=== PATIENT | female | born 1960 | race Caucasian/White ===

== ENCOUNTER 2019-06-22 11:34 | Day surgery (SDC) | payer OTHER ==
[2019-06-21 14:55] VITALS: BMI 30.2
[2019-06-22 12:31] VITALS: TEMP 99.1
[2019-06-22 13:53] VITALS: BP 132/81; PULSE 70
--- NOTE | 2019-06-23 16:14 | PATH ---
Surgical Pathology Report Patient Name: KARRIE MODI [facility]. Rec. #: [id number] /Age/Gender: 1960 (Age: 59) / F Account: [id number] Location: [facility]-ENDOSCOPY Taken: 06/22/2019 Received: 06/22/2019 Reported: 06/23/2019 Physicians: Clarence Ulrich D.O. Specimen(s) Received A: 2ND PORTION AND BULB OF DUODENUM BIOPSY B: EROSIONS AND DISTAL BODY BIOPSY C: ANTRUM AND BODY BIOPSY D: GE JUNCTION BIOPSY Clinical History GERD, anemia Postoperative diagnosis: Gastritis Final Diagnosis A. SECOND PORTION OF DUODENUM AND BULB, BIOPSY: DUODENUM MUCOSA WITH NO SIGNIFICANT PATHOLOGIC CHANGE. NO HISTOLOGIC EVIDENCE OF CELIAC DISEASE. B. EROSIONS AND DISTAL BODY BIOPSY: GASTRIC MUCOSA WITH CHRONIC GASTRITIS. REACTIVE GASTROPATHY PRESENT. NEGATIVE FOR INTESTINAL METAPLASIA. SEPARATE ONE SMALL FRAGMENT OF DUODENUM MUCOSA WITH NO SIGNIFICANT PATHOLOGIC CHANGE. C. ANTRUM AND BODY BIOPSY: GASTRIC MUCOSA WITH FOCAL REACTIVE GASTROPATHY. IMMUNOSTAIN FOR H. PYLORI IS NEGATIVE. NEGATIVE FOR INTESTINAL METAPLASIA. D. GE JUNCTION BIOPSY: GASTROESOPHAGEAL JUNCTIONAL MUCOSA WITH REFLUX ESOPHAGITIS. NEGATIVE FOR INTESTINAL METAPLASIA. Electronically Signed Galilea Sanchez M.D. Gross Description A. Received in formalin, labeled "second portion of duodenum and bulb" are 2 [place], irregular portions of soft tissue measuring 0.2 and 0.4 cm. in greatest dimension. The specimens are submitted in toto in one cassette. B. Received in formalin, labeled "erosion and distal body biopsy" are 4 [place], irregular portions of soft tissue ranging from 0.2-0.4 cm. in greatest dimension. The specimens are submitted in toto in one cassette. C. Received in formalin, labeled "antrum and body biopsy" are 2 [place], irregular portions of soft tissue averaging 0.4 cm. in greatest dimension. The specimens are submitted in toto in one cassette. D. Received in formalin, labeled "GE junction biopsy" are 4 [place], irregular portions of soft tissue ranging from 0.1-0.2 cm. in greatest dimension. The specimens are submitted in toto in one cassette. /06/22/2019 saudi06/22/2019
== END 2019-06-22 13:30 | disposition home or self-care (01) ==
LOC: JASU-ENDO 11:34
PROVIDERS: ATTEND Internal Medicine Gastroenterology
PROC: 0DB68ZX Excision of Stomach, Via Natural or Artificial Opening Endoscopic, Diagnostic (ICD-10-PCS; 2019-06-22)
PROC: 0DB48ZX Excision of Esophagogastric Junction, Via Natural or Artificial Opening Endoscopic, Diagnostic (ICD-10-PCS; principal; 2019-06-22 11:00)
DX: K21.0 Gastro-esophageal reflux disease with esophagitis (principal); K29.50 Unspecified chronic gastritis without bleeding; I10 Essential (primary) hypertension; J44.9 Chronic obstructive pulmonary disease, unspecified
CPT/HCPCS: 88305-TC; 88342-TC

== ENCOUNTER 2019-06-29 10:04 | Day surgery (SDC) | payer OTHER ==
[2019-06-28 14:42] VITALS: BMI 23.5
[2019-06-29 12:40] VITALS: TEMP 97.7
[2019-06-29 14:23] VITALS: BP 119/68; PULSE 52
--- NOTE | 2019-06-30 15:01 | PATH ---
Surgical Pathology Report Patient Name: KARRIE MODI [facility]. Rec. #: [id number] /Age/Gender: 1960 (Age: 59) / F Account: [id number] Location: [facility]-ENDOSCOPY Taken: 06/29/2019 Received: 06/29/2019 Reported: 06/30/2019 Physicians: Clarence Ulrich D.O. Specimen(s) Received A: POLYP PROXIMAL TRANSVERSE COLON B: POLYP RIGHT COLON C: CECUM POLYP D: RIGHT COLON POLYP #2 E: SIGMOID POLYP Clinical History Rectal bleeding Postoperative diagnosis: Colon polyps, diverticulosis Final Diagnosis A. PROXIMAL TRANSVERSE COLON, POLYP, POLYPECTOMY: TUBULAR ADENOMA. B. COLON, RIGHT, POLYP, POLYPECTOMY AND BIOPSY: TUBULAR ADENOMA. C. CECUM, POLYP, POLYPECTOMY: TUBULAR ADENOMA, CAUTERIZED. D. COLON, RIGHT ,POLYP #2, POLYPECTOMY: TUBULAR ADENOMA, CAUTERIZED. E. SIGMOID COLON, POLYP, BIOPSY: HYPERPLASTIC POLYP. Electronically Signed Rosmery Chand M.D. Gross Description A. Received in formalin, labeled "polyp proximal transverse colon" is a [place], polypoid portion of soft tissue measuring 0.6 cm. in greatest dimension. The specimen is submitted in toto in one cassette. B. Received in formalin, labeled "polyp right colon" are 3 [place], irregular portions of soft tissue ranging from 0.1-0.3 cm. in greatest dimension. The specimens are submitted in toto in one cassette. C. Received in formalin, labeled "polyp cecum " are 3 [place], irregular portions of soft tissue ranging from 0.1-0.4 cm. in greatest dimension. The specimens are submitted in toto in one cassette. D. Received in formalin, labeled "right colon polyp #2" is a [place], irregular portion of soft tissue measuring 0.2 cm. in greatest dimension. The specimen is submitted in toto in one cassette. E. Received in formalin, labeled "biopsy sigmoid polyp" is a [place], irregular portion of soft tissue measuring 0.4 cm. in greatest dimension. The specimen is submitted in toto in one cassette. DL/06/29/2019 saudi/06/29/2019
== END 2019-06-29 14:00 | disposition home or self-care (01) ==
LOC: JASU-ENDO 10:04
PROVIDERS: ATTEND Internal Medicine Gastroenterology
PROC: 0DBF8ZX Excision of Right Large Intestine, Via Natural or Artificial Opening Endoscopic, Diagnostic (ICD-10-PCS; 2019-06-29)
PROC: 0DBN8ZX Excision of Sigmoid Colon, Via Natural or Artificial Opening Endoscopic, Diagnostic (ICD-10-PCS; 2019-06-29)
PROC: 0DBL8ZX Excision of Transverse Colon, Via Natural or Artificial Opening Endoscopic, Diagnostic (ICD-10-PCS; 2019-06-29)
PROC: 3E0H8GC Introduction of Other Therapeutic Substance into Lower GI, Via Natural or Artificial Opening Endoscopic (ICD-10-PCS; 2019-06-29)
PROC: 0DBH8ZX Excision of Cecum, Via Natural or Artificial Opening Endoscopic, Diagnostic (ICD-10-PCS; principal; 2019-06-29 10:30)
DX: Z12.11 Encounter for screening for malignant neoplasm of colon (principal); K57.30 Diverticulosis of large intestine without perforation or abscess without bleeding; K63.89 Other specified diseases of intestine; D12.0 Benign neoplasm of cecum; D12.5 Benign neoplasm of sigmoid colon; D12.3 Benign neoplasm of transverse colon; K64.8 Other hemorrhoids
CPT/HCPCS: 88305-TC

== ENCOUNTER 2021-06-11 04:14 | Day surgery (SDC) | payer OTHER ==
[2021-06-08 14:03] VITALS: BMI 23.5
[2021-06-11] MEDS ORDERED: DEXAMETHASONE SOD PHOSPHATE 4 MG/1 ML VIAL ONE (07:20)
[2021-06-11] MEDS ORDERED: BUPIVACAINE HCL/PF 0.25% (2.5MG/ML) 10 ML VIAL ONE (07:20)
[2021-06-11] MEDS ORDERED: MIDAZOLAM HCL 2 MG/2 ML SINGLE DOSE VIAL ONE (08:01)
[2021-06-11] MEDS ORDERED: PROPOFOL 20 ML ONE (08:02)
[2021-06-11] MEDS ORDERED: SUCCINYLCHOLINE CHLORIDE 200 MG/10 ML SYRINGE ONE (08:02)
[2021-06-11] MEDS ORDERED: DEXAMETHASONE SOD PHOSPHATE 10 MG/1 ML VIAL ONE (08:27)
[2021-06-11] MEDS ORDERED: BUPIVACAINE HCL/PF 0.5% (5MG/ML) 10 ML VIAL ONE (08:28)
[2021-06-11] MEDS ORDERED: LIDOCAINE HCL 1%, 10 MG/ML (20ML VIAL) SQ ONE (08:36)
[2021-06-11] MEDS ORDERED: LIDOCAINE HCL 1%, 10 MG/ML (20ML VIAL) ONE (08:37)
[2021-06-11] MEDS ORDERED: BUPIVACAINE HCL/PF 0.5% (5MG/ML) 10 ML VIAL IJ ONE (08:37)
[2021-06-11] MEDS ORDERED: IOHEXOL 180 MG/1 ML ML IJ ONE (08:38)
[2021-06-11] MEDS ORDERED: DEXAMETHASONE SOD PHOSPHATE 10 MG/1 ML VIAL IVPUSH ONE (08:38)
[2021-06-11 14:31] VITALS: BP 154/75; PULSE 70; TEMP 97.2
== END 2021-06-11 11:23 | disposition home or self-care (01) ==
LOC: JASU-SURG 04:14
PROVIDERS: ATTEND Physical Medicine & Rehabilitation
PROC: 3E0T33Z Introduction of Anti-inflammatory into Peripheral Nerves and Plexi, Percutaneous Approach (ICD-10-PCS; 2021-06-11)
PROC: 3E0T3BZ Introduction of Anesthetic Agent into Peripheral Nerves and Plexi, Percutaneous Approach (ICD-10-PCS; principal; 2021-06-11 08:00)
DX: M47.816 Spondylosis without myelopathy or radiculopathy, lumbar region (principal)
CPT/HCPCS: 76000-TC-FY; J1100

== ENCOUNTER 2022-11-23 14:49 | Inpatient (IN) | payer OTHER ==
[2022-11-23] MEDS ORDERED: CEFAZOLIN 1 GM in DEXTROSE 5%-WATER - 50 ML IVPB ONE (16:34)
[2022-11-23] MEDS: ALBUTEROL SO4 2.5/IPRATROPIUM 0.5 INH SOL 3 ML VIAL.NEB. NEB SCH ×2 (16:46→19:53)
[2022-11-23] MEDS ORDERED: ceFAZolin SODIUM 1 GM VIAL ONE (17:02)
[2022-11-23 17:33] LABS: BASO % 0.9 % (0-2.0); EOS % 4.9 % (0-4.5); HEMATOCRIT 37.8 % (32.4-45.2); HEMOGLOBIN 12.7 GM/dL (10.7-15.3); LYMPH % 34.1 % (8-40); MCH 33.6 pg (25.7-33.7); MCHC 33.5 g/dl (32.0-36.0); MEAN CELL VOLUME 100.2 fl (80-96); MEAN PLT VOLUME 7.9 fl (7.5-11.1); MONO % 8.3 % (3.8-10.2); NEUT % 51.8 % (42.8-82.8); PLATELET COUNT 285 10^3/uL (134-434); RBC 3.77 M/mm3 (3.60-5.2); RDW 13.8 % (11.6-15.6); WHITE BLOOD COUNT 6.2 K/mm3 (4.0-10.0)
[2022-11-23 17:53] LABS: CALCIUM 8.5 mg/dL (8.5-10.1)
[2022-11-23 17:54] LABS: ALBUMIN 3.5 g/dl (3.4-5.0); BLOOD UREA NITROGEN 4.2 mg/dL (7-18); MAGNESIUM 2.2 mg/dL (1.8-2.4)
[2022-11-23 17:57] LABS: CREATININE 0.5 mg/dL (0.55-1.3)
[2022-11-23 17:58] LABS: BILIRUBIN,TOTAL 0.3 mg/dL (0.2-1); TOT PROT 6.7 g/dl (6.4-8.2)
[2022-11-23] MEDS ORDERED: ALBUTEROL SO4 2.5/IPRATROPIUM 0.5 INH SOL 3 ML VIAL.NEB. NEB PRN (23:42)
[2022-11-23] MEDS: NICOTINE 14 MG/24 HOURS TOPICAL PATCH TD SCH (23:50)
[2022-11-24 02:41] VITALS: BMI 29.5
[2022-11-24] MEDS ORDERED: CEFAZOLIN 1 GM in DEXTROSE 5%-WATER - 50 ML IVPB ONE (08:42)
[2022-11-24] MEDS: NICOTINE 14 MG/24 HOURS TOPICAL PATCH TD SCH (09:54)
[2022-11-24 10:07] LABS: BASO % 0.5 % (0-2.0); EOS % 4.9 % (0-4.5); HEMATOCRIT 37.2 % (32.4-45.2); HEMOGLOBIN 12.6 GM/dL (10.7-15.3); LYMPH % 32.9 % (8-40); MCH 34.3 pg (25.7-33.7); MEAN CELL VOLUME 100.9 fl (80-96); MONO % 6.8 % (3.8-10.2); NEUT % 54.9 % (42.8-82.8); PLATELET COUNT 320 10^3/uL (134-434); RBC 3.68 M/mm3 (3.60-5.2); RDW 13.9 % (11.6-15.6); WHITE BLOOD COUNT 5.5 K/mm3 (4.0-10.0)
[2022-11-24 10:43] LABS: ALBUMIN 3.4 g/dl (3.4-5.0); BLOOD UREA NITROGEN 5.1 mg/dL (7-18)
[2022-11-24 10:44] LABS: BILIRUBIN,TOTAL 0.5 mg/dL (0.2-1); TOT PROT 6.7 g/dl (6.4-8.2)
[2022-11-24 10:45] LABS: CREATININE 0.7 mg/dL (0.55-1.3)
[2022-11-24 10:46] LABS: CALCIUM 8.8 mg/dL (8.5-10.1)
[2022-11-24] MEDS: ALPRAZolam 1 MG TABLET PO SCH ×3 (13:52→22:38)
[2022-11-24] MEDS: FUROSEMIDE 40 MG TABLET (FP) PO SCH (13:53)
[2022-11-24] MEDS: BUDESONIDE/FORMETEROL FUMARATE 160/4.5 mcg INHALER IH SCH (22:38)
[2022-11-24] MEDS: SERTRALINE HCL 50 MG TABLET (FP) PO SCH (22:38)
[2022-11-25 07:44] VITALS: RESP 20
[2022-11-25 08:45] LABS: URINE APPEARANCE CLOUDY; URINE BILIRUBIN NEGATIVE (NEGATIVE); URINE COLOR YELLOW; URINE GLUCOSE (UA) NEGATIVE (NEGATIVE); URINE KETONE NEGATIVE (NEGATIVE); URINE LEUK ESTERASE NEGATIVE (NEGATIVE); URINE NITRITE NEGATIVE (NEGATIVE); URINE PROTEIN NEGATIVE (NEGATIVE)
[2022-11-25] MEDS: SERTRALINE HCL 50 MG TABLET (FP) PO SCH ×2 (09:27→22:26)
[2022-11-25] MEDS: ALPRAZolam 1 MG TABLET PO SCH ×4 (09:27→22:29)
[2022-11-25] MEDS: FUROSEMIDE 40 MG TABLET (FP) PO SCH (09:27)
[2022-11-25] MEDS: CEPHALEXIN MONOHYDRATE 500 MG CAPSULE (UD) PO SCH ×2 (09:28→22:28)
[2022-11-25] MEDS: ASPIRIN 81 MG CHEWABLE TABLETS PO SCH (09:28)
[2022-11-25] MEDS: BUDESONIDE/FORMETEROL FUMARATE 160/4.5 mcg INHALER IH SCH ×2 (09:28→22:28)
[2022-11-25] MEDS: NICOTINE 14 MG/24 HOURS TOPICAL PATCH TD SCH (09:28)
[2022-11-25] MEDS: GABAPENTIN 100 MG CAPSULE PO SCH ×2 (14:53→22:26)
[2022-11-26] MEDS: GABAPENTIN 100 MG CAPSULE PO SCH ×2 (06:35→14:55)
[2022-11-26] MEDS: FUROSEMIDE 40 MG TABLET (FP) PO SCH (09:23)
[2022-11-26] MEDS: SERTRALINE HCL 50 MG TABLET (FP) PO SCH (09:23)
[2022-11-26] MEDS: NICOTINE 14 MG/24 HOURS TOPICAL PATCH TD SCH (09:23)
[2022-11-26] MEDS: ALPRAZolam 1 MG TABLET PO SCH ×2 (09:23→14:55)
[2022-11-26] MEDS: ASPIRIN 81 MG CHEWABLE TABLETS PO SCH (09:23)
[2022-11-26] MEDS: CEPHALEXIN MONOHYDRATE 500 MG CAPSULE (UD) PO SCH (09:23)
[2022-11-26] MEDS: BUDESONIDE/FORMETEROL FUMARATE 160/4.5 mcg INHALER IH SCH (09:25)
[2022-11-26 14:32] VITALS: BP 134/72; PULSE 73; TEMP 98.5
== END 2022-11-26 16:45 | disposition home health service (06) | DRG 603 ==
LOC: JER 14:49 → JERBED 20:05 → J8W 23:09
PROVIDERS: ADMIT Internal Medicine; ATTEND Family Medicine
DX: L03.115 Cellulitis of right lower limb (principal); F11.20 Opioid dependence, uncomplicated; L03.116 Cellulitis of left lower limb; J44.9 Chronic obstructive pulmonary disease, unspecified; J45.909 Unspecified asthma, uncomplicated; I50.9 Heart failure, unspecified; I11.0 Hypertensive heart disease with heart failure; F17.200 Nicotine dependence, unspecified, uncomplicated; R26.81 Unsteadiness on feet; G62.9 Polyneuropathy, unspecified; M20.12 Hallux valgus (acquired), left foot; M20.11 Hallux valgus (acquired), right foot; B35.1 Tinea unguium; K21.9 Gastro-esophageal reflux disease without esophagitis
CPT/HCPCS: 0241U-QW; 36415; 71045-TC-FY; 73502-TC-LT-FY; 73630-TC-LT; 73630-TC-RT-FY; 80053; 81003; 82550; 83735; 83880; 84484; 85025; 93005; 93010; 93970-TC; 97116-GP; 99285-25

== ENCOUNTER 2023-05-08 13:15 | Day surgery (SDC) | payer OTHER ==
[2023-05-08] MEDS ORDERED: FERRIC CARBOXYMALTOSE 750 MG in SODIUM CHLORIDE 250 ML IVPB ONE (14:00)
[2023-05-08 14:47] VITALS: RESP 18; TEMP 98
[2023-05-08 15:34] VITALS: BP 131/86; PULSE 80
== END 2023-05-08 15:35 | disposition home or self-care (01) ==
LOC: FINFUSION 13:15 → FM/S 13:22 → FINFUSION 15:35
PROVIDERS: ATTEND Family Medicine
PROC: 3E033GC Introduction of Other Therapeutic Substance into Peripheral Vein, Percutaneous Approach (ICD-10-PCS; principal; 2023-05-08)
DX: D50.9 Iron deficiency anemia, unspecified (principal)
CPT/HCPCS: 96365; J1439

== ENCOUNTER 2023-05-19 11:22 | Day surgery (SDC) | payer OTHER ==
[~2023-05-19 11:22] MED LIST: FERRIC CARBOXYMALTOSE 750 MG in SODIUM CHLORIDE 250 ML IVPB ONE
[2023-05-19] MEDS ORDERED: FERRIC CARBOXYMALTOSE 750 MG in SODIUM CHLORIDE 250 ML IVPB ONE (12:30)
[2023-05-19 15:52] VITALS: BP 98/66; PULSE 72; RESP 18; TEMP 98.5
== END 2023-05-19 15:15 | disposition short-term general hospital (02) ==
LOC: FINFUSION 11:22 → FM/S 11:23 → FINFUSION 15:15
PROVIDERS: ATTEND Family Medicine
PROC: 3E033GC Introduction of Other Therapeutic Substance into Peripheral Vein, Percutaneous Approach (ICD-10-PCS; principal; 2023-05-19)
DX: D50.9 Iron deficiency anemia, unspecified (principal)
CPT/HCPCS: 96365; J1439